=== PATIENT | male | born 1960 | race Caucasian/White ===

== ENCOUNTER 2016-11-23 17:45 | Emergency (ER) | payer OTHER | END 2016-11-23 17:57 | disposition home or self-care (01) | LOC: ER 17:45 | DX: M10.9 Gout, unspecified (principal); I48.91 Unspecified atrial fibrillation; E11.9 Type 2 diabetes mellitus without complications; K21.9 Gastro-esophageal reflux disease without esophagitis; Z86.718 Personal history of other venous thrombosis and embolism; Z85.841 Personal history of malignant neoplasm of brain; Z79.899 Other long term (current) drug therapy ==